=== PATIENT | female | born 1960 | race Asian ===

== ENCOUNTER 2021-08-23 14:59 | Emergency (ER) | payer OTHER ==
[~2021-08-23] VITALS: Ht 160 cm; Wt 65.8 kg
[2021-08-23 15:31] VITALS: BP_SYST 95
--- NOTE | 2021-08-23 17:00 | NUR ---
Patient triaged and placed in waiting room. VSS and patient appears in no acute distress at this time. Accompanied by self, awaiting available bed, and MD notified of need for MSE.
--- NOTE | 2021-08-23 17:15 | NUR ---
ER at bedside examining patient.
[2021-08-23 18:00] VITALS: BP_SYST 95
--- NOTE | 2021-08-23 18:00 | NUR ---
Patient given written and verbal discharge instructions and verbalizes understanding. ER MD discussed with patient the results and treatment provided. Patient in stable condition. ID arm band removed. no Rx of given. Patient educated on pain management and to follow up with PMD. Pain Scale 0. Opportunity for questions provided and answered. Medication side effect fact sheet provided.
== END 2021-08-23 18:00 | disposition home or self-care (01) ==
LOC: SED 14:59
DX: F07.81 Postconcussional syndrome (principal); W01.198A Fall on same level from slipping, tripping and stumbling with subsequent striking against other object, initial encounter; Y93.89 Activity, other specified; Y92.89 Other specified places as the place of occurrence of the external cause; Y99.8 Other external cause status
CPT/HCPCS: 70450-TC; 76376; 99284